=== PATIENT | male | born 1960 | race African-American/Black ===

== ENCOUNTER 2016-04-27 05:20 | Outpatient (CLI) ==
[2016-04-27 05:52] VITALS: BMI 24.0
== END 2016-04-27 05:21 | disposition home or self-care (01) ==
LOC: AMBL 05:20
PROVIDERS: ATTEND Internal Medicine Geriatric Medicine
DX: K08.89 Other specified disorders of teeth and supporting structures (principal)

== ENCOUNTER 2016-04-27 05:29 | Emergency (ER) ==
[2016-04-27 05:52] VITALS: TEMP 99.2; BMI 24.0
[2016-04-27] MEDS ORDERED: ZOFRAN 4 MG/2 ML IVP STA (06:14)
[2016-04-27] MEDS ORDERED: SODIUM CHLORIDE 1,000 ML IV STA (06:14)
[2016-04-27] MEDS ORDERED: SOLU-MEDROL 125 MG IVP STA (06:14)
[2016-04-27] MEDS ORDERED: MORPHINE 4 MG/ML SYRINGE IVP STA (06:14)
[2016-04-27] MEDS ORDERED: ROCEPHIN 1 GM in SODIUM CHLORIDE 100 ML IV STA (06:15)
--- NOTE | 2016-04-27 06:18 | ED.PDOC ---
General ED Provider: Dr. JENNIFER GAUTAM Chief Complaint: Tooth Problem Stated Complaint: Patient is a 55 year old male who states that he broke his left lower molar 3-4 days ago since then he has had severer left jaw pain and swelling on left face . He has not been able to eat much only drink some V8. He states that he took about 20 tables of Excedrin over the past 3-4 days Time Seen by Physician: 06:00 Mode of Arrival: Ambulance Information Source: Patient Exam Limitations: No limitations Nursing and Triage Documentation Reviewed and Agree: Yes EENT Complaint Exam - Dental/Oral Complaint/Exam Mechanism of Injury: No known trauma Onset/Duration: 3 days Symptoms Are: Still present Timing: Constant Initial Severity: Moderate Character: Reports: Aching, Throbbing Aggravating: Reports: Cold, Chewing Alleviating: Reports: None Associated Signs and Symptoms: Reports: Swelling, Foul odor Related History: Reports: Similar episode Cardiac Risk Factors: Reports: None Dental/Oral Surgical History: Reports: None Tooth Findings: Present: Gross decay Cervical Lymphadenopathy Present: Yes Facial Swelling Present: Yes (left) Bleeding Present: No Oropharynx Findings: Absent: Clots, Active bleeding Septal Hematoma: No Foreign Body Present: No Dysphagia Present: No Drooling Present: No Asymmetrical Tonsillar Swelling Present: No Uvula Midline: No Kinsey-tonsillar Fluctuence: No Trismus Present: No Palatal Petechiae Present: No Scarlatinaform Rash Present: No Teeth Picture: 1 - Gross decay Differential Diagnoses: Dental Caries, Fractured Tooth Review of Systems - Review Of Systems Constitutional: Reports: Weakness, Loss of appetite Ears, Nose, Mouth, Throat: Reports: Mouth pain, Mouth swelling Cardiac: Reports: No symptoms GI: Reports: No symptoms : Reports: No symptoms Musculoskeletal: Reports: No symptoms Skin: Reports: No symptoms Neurological: Reports: No symptoms Endocrine: Reports: No symptoms Hematologic/Lymphatic: Reports: No symptoms All Other Systems: Reviewed and Negative Past Medical History - Past Medical History Endocrine: Reports: None Cardiovascular: Reports: None Respiratory: Reports: None Hematological: Reports: None Gastrointestinal: Reports: None Genitourinary: Reports: None Neuro/Psych: Reports: None Musculoskeletal: Reports: None Cancer: Reports: None - Surgical History General Surgical History: Reports: None - Family History Family History: Reports: None - Social History Smoking Status: Current some day smoker, Heavy tobacco smoker Hx Substance Use: No Alcohol Screening: Occasionally - Immunizations Tetanus Shot up to Date: No Physical Exam - Physical Exam Appearance: Ill-appearing Ill-appearing: Moderate Pain Distress: Severe Eyes: SHONA, EOMI, Conjunctiva clear ENT: Ears normal, Nose normal, Oropharynx normal Neck: Supple Cardiovascular: Tachycardia GI/: Soft, Nontender, No masses, Bowel sounds normal, No Organomegaly Musculoskeletal: Normal strength, ROM intact, No edema, No calf tenderness Skin: Warm, Dry, Normal color Neurological: Sensation intact Psychiatric: Anxious Re-Evaluation - Re-Evaluation Time of Re-Evaluation: 07:13 Status: Improved Vital Signs Stable: Yes (143/92, 98) Critical Care Note - Critical Care Note Total Time (mins): 0 Course - Course Hematology/Chemistry: 04/27/16 06:20 04/27/16 06:20 Orders, Labs, Meds: Orders Category Date Time Status ED IV/MEDIPORT/POWERPORT .ONCE EMERGENCY 04/27/16 06:14 Ordered ACETAMINOPHEN Stat LAB 04/27/16 06:14 Ordered CBC W/ AUTO DIFF Stat LAB 04/27/16 06:14 Ordered COMPREHENSIVE METABOLIC PANEL Stat LAB 04/27/16 06:14 Ordered SALICYLATE Stat LAB 04/27/16 06:14 Ordered 0.9 % Sodium Chloride [Saline Flush] MEDS 04/27/16 06:14 Ordered 1 syr IVF PRN PRN Ceftriaxone Sodium [Rocephin] 1 gm MEDS 04/27/16 06:15 Ordered 0.9 % Sodium Chloride [Sodium Chloride] 100 ml IV ONCE Methylprednisolone Sod Succ/Pf [Solu-Medrol 125 mg] MEDS 04/27/16 06:14 Stat 125 mg IVP ONCE STA Morphine Sulfate [Morphine 4 mg/ml Syringe] MEDS 04/27/16 06:14 Stat 4 mg IVP ONCE STA Ondansetron HCl/Pf [Zofran 4 mg/2 ml] MEDS 04/27/16 06:14 Stat 4 mg IVP ONCE STA SODIUM CHLORIDE 0.9% @ 1,000 MLS/HR(1,000ml) MEDS 04/27/16 06:14 Ordered Sodium Chloride 0.9% [Sodium Chloride] 1,000 ml IV BOLUS Medications Generic Name Dose Route Start Last Admin Trade Name Freq PRN Reason Stop Dose Admin Sodium Chloride 1,000 mls @ 1,000 mls/hr 04/27/16 06:14 Sodium Chloride IV 04/27/16 07:13 BOLUS STA Sodium Chloride 1 syr 04/27/16 06:14 Saline Flush IVF PRN PRN To flush IV Discontinued Medications Generic Name Dose Route Start Last Admin Trade Name Freq PRN Reason Stop Dose Admin Methylprednisolone Sodium Succinate 125 mg 04/27/16 06:14 Solu-Medrol 125 Mg IVP 04/27/16 06:15 ONCE STA Morphine Sulfate 4 mg 04/27/16 06:14 Morphine 4 Mg/Ml Syringe IVP 04/27/16 06:15 ONCE STA Ondansetron HCl 4 mg 04/27/16 06:14 Zofran 4 Mg/2 Ml IVP 04/27/16 06:15 ONCE STA Vital Signs: Temp Pulse Resp BP Pulse Ox 04/27/16 05:30 99.2 F 121 H 24 177/110 H 99 Departure - Departure Time of Disposition: 07:03 Disposition: HOME SELF-CARE Discharge Problem: Toothache Instructions: Dental Abscess (ED), Toothache (ED) Condition: Fair Pt referred to PMD for follow-up: Yes Additional Instructions: take antibiotics as prescribed Follow up with you dentist in 3 days Prescriptions: Hydrocodone/Acetaminophen [[place] 5-325 Tablet] 1 tab PO Q6HR PRN #20 tablet PRN Reason: PAIN Amoxicillin [Amoxil] 500 mg PO TID #30 capsule Ibuprofen [Motrin] 600 mg PO Q6H PRN #30 tablet PRN Reason: Analgesia Allergies/Adverse Reactions: Allergies No Known Allergies Allergy (Verified 04/27/16 06:05) Home Medications: Ambulatory Orders Amoxicillin [Amoxil] 500 mg PO TID #30 capsule 04/27/16 Hydrocodone/Acetaminophen [[place] 5-325 Tablet] 1 tab PO Q6HR PRN #20 tablet 06/10 Ibuprofen [Motrin] 600 mg PO Q6H PRN #30 tablet 04/27/16 Disposition Discussed With: Patient
[2016-04-27] MEDS ORDERED: ROCEPHIN ONE (06:24)
[2016-04-27 06:26] LABS: BASOPHILS % (AUTO) 0.4 % (0.0-3.0); EOSINOPHILS % (AUTO) 0.2 % (0.0-7.0); HEMATOCRIT 44.5 % (42.0-52.0); HEMOGLOBIN 15.6 g/dl (14.0-18.0); IMMATURE GRANULOCYTE % (AUTO) 0.4 % (0.0-5.0); LYMPHOCYTES # (AUTO) 0.8 K/uL (0.60-3.4); LYMPHOCYTES % (AUTO) 7.9 (10.0-50.0); MEAN CORPUSCULAR HEMOGLOBIN 32.4 pg (27.0-31.0); MEAN CORPUSCULAR HGB CONC 35.1 (31.8-35.4); MEAN CORPUSCULAR VOLUME 92.3 fl (80.0-94.0); MONOCYTES # (AUTO) 1.3 K/uL (0.4-2.0); MONOCYTES % (AUTO) 11.8 (0-10); NEUTROPHILS # (AUTO) 8.4 K/ul (2.0-6.9); NEUTROPHILS % (AUTO) 79.3; PLATELET COUNT 363 10^3/uL (140-440); RED BLOOD COUNT 4.82 10^6/ul (4.70-6.10); WHITE BLOOD COUNT 10.58 K/ul (4.2-10.2)
[2016-04-27 06:45] LABS: ACETAMINOPHEN < 3 ug/ml (10-30); ALANINE AMINOTRANSFERASE 11 U/L (12-78); ALBUMIN 3.2 g/dL (3.4-5.0); ALBUMIN/GLOBULIN RATIO 0.63; ALKALINE PHOSPHATASE 71 U/L (50-136); ANION GAP 19.7; ASPARTATE AMINO TRANSFERASE 22 U/L (15-37); BILIRUBIN,TOTAL 0.49 mg/dL (0.00-1.20); BLOOD UREA NITROGEN 6 mg/dL (7-18); BUN/CREATININE RATIO 6.97; CALCIUM 9.6 mg/dL (8.2-10.2); CARBON DIOXIDE 20 mmol/L (21-32); CHLORIDE 100 mmol/L (98-107); CREATININE 0.86 mg/dL (0.60-1.10); GLUCOSE 162 mg/dL (70-100); POTASSIUM 3.7 mmol/L (3.5-5.1); SALICYLATE 13.5 mg/dL (2.8-20.0); SODIUM 136 mmol/L (136-145); TOTAL PROTEIN 8.3 g/dL (6.4-8.2)
[2016-04-27 08:21] VITALS: BP 144/83
== END 2016-04-27 08:30 | disposition home or self-care (01) ==
LOC: ED 05:29
DX: K08.89 Other specified disorders of teeth and supporting structures (principal); K02.7 Dental root caries; S02.5XXA Fracture of tooth (traumatic), initial encounter for closed fracture; F17.210 Nicotine dependence, cigarettes, uncomplicated
CPT/HCPCS: 36415; 80053; 80307; 85025; 96365; 96375; 99283

== ENCOUNTER 2017-07-01 19:14 | Outpatient (CLI) | END 2017-07-01 19:15 | disposition short-term general hospital (02) | LOC: AMBL 19:14 | PROVIDERS: ATTEND Family Medicine | DX: R53.1 Weakness (principal); R17 Unspecified jaundice; F10.10 Alcohol abuse, uncomplicated; R00.0 Tachycardia, unspecified; R73.9 Hyperglycemia, unspecified ==

== ENCOUNTER 2017-07-15 16:05 | Outpatient (CLI) | END 2017-07-15 16:06 | disposition home or self-care (01) | LOC: RHC-LAB 16:05 | PROVIDERS: ATTEND Emergency Medicine | DX: E11.9 Type 2 diabetes mellitus without complications (principal); J18.9 Pneumonia, unspecified organism; J44.9 Chronic obstructive pulmonary disease, unspecified; I10 Essential (primary) hypertension | CPT/HCPCS: 36415; 80053; 85025 ==

== ENCOUNTER 2017-08-07 08:57 | Outpatient (CLI) | END 2017-08-07 08:58 | disposition home or self-care (01) | LOC: LAB 08:57 | PROVIDERS: ATTEND Emergency Medicine | DX: D64.9 Anemia, unspecified (principal) | CPT/HCPCS: 36415; 82607; 82728; 82746; 83540; 83550; 84466; 85025; 85045 ==

== ENCOUNTER 2017-10-08 10:46 | Outpatient (CLI) | END 2017-10-08 10:47 | disposition home or self-care (01) | LOC: RHC-LAB 10:46 | PROVIDERS: ATTEND Emergency Medicine | DX: E11.9 Type 2 diabetes mellitus without complications (principal); I10 Essential (primary) hypertension; J44.9 Chronic obstructive pulmonary disease, unspecified; Z12.5 Encounter for screening for malignant neoplasm of prostate | CPT/HCPCS: 36415; 80053; 80061; 83036; 84443; 85025 ==

== ENCOUNTER 2018-04-17 08:24 | Outpatient (CLI) | END 2018-04-17 08:25 | disposition home or self-care (01) | LOC: RHC-LAB 08:24 | PROVIDERS: ATTEND Nurse Practitioner Family | DX: E11.9 Type 2 diabetes mellitus without complications (principal); I10 Essential (primary) hypertension | CPT/HCPCS: 36415; 80053; 83036 ==

== ENCOUNTER 2018-07-13 08:40 | Outpatient (CLI) | END 2018-07-13 08:41 | disposition home or self-care (01) | LOC: RHC-LAB 08:40 | PROVIDERS: ATTEND Nurse Practitioner Family | DX: E11.9 Type 2 diabetes mellitus without complications (principal); I10 Essential (primary) hypertension | CPT/HCPCS: 36415; 80053; 80061; 83036; 85025 ==

== ENCOUNTER 2018-10-14 08:01 | Outpatient (CLI) | END 2018-10-14 08:02 | disposition home or self-care (01) | LOC: RHC-LAB 08:01 | PROVIDERS: ATTEND Nurse Practitioner Family | DX: E11.9 Type 2 diabetes mellitus without complications (principal); I10 Essential (primary) hypertension; Z12.5 Encounter for screening for malignant neoplasm of prostate | CPT/HCPCS: 36415; 80053; 83036 ==